=== PATIENT | male | born 1960 | race African-American/Black ===

== ENCOUNTER 2018-10-01 16:04 | Emergency (ER) | payer SELFPAY ==
[~2018-10-01] VITALS: Ht 177.8 cm; Wt 80.0 kg
[2018-10-01 18:54] VITALS: BP 110/65
== END 2018-10-01 19:35 | disposition left against medical advice (07) ==
LOC: ER 16:04
DX: Z53.21 Procedure and treatment not carried out due to patient leaving prior to being seen by health care provider (principal)